=== PATIENT | female | born 1985 | race Caucasian/White ===

== ENCOUNTER 2019-07-18 06:27 | Outpatient (CLI) | payer OTHER, SELFPAY ==
[2019-07-18 16:20] LABS: SARS-CoV-2 RNA PCR Negative
== END 2019-07-18 06:28 | disposition home or self-care (01) ==
LOC: ANHCOVIDDT 06:28
PROVIDERS: Visit Provider Surgery
DX: Z01.818 Encounter for other preprocedural examination (principal); Z11.59 Encounter for screening for other viral diseases
CPT/HCPCS: 87635; C9803; U0003

== ENCOUNTER 2019-07-21 00:10 | Day surgery (SDC) | payer OTHER, SELFPAY ==
[2019-05-23 09:31] VITALS: BMI 23.3
[2019-07-16 09:08] VITALS: BMI 23.3
[2019-07-21] VITALS (8 sets, daily range): BP systolic 92–134; BP diastolic 49–83; PULSE 77–109; RESP 13–22; TEMP 36.3–36.4; O2SAT 98–100
--- NOTE | 2019-07-21 10:32 | WPDANESEPPF ---
Anes - Initial Pre Proc Eval Procedure: Operation Date: 07/21/19 12:00 Proposed Procedures p Umbilical Hernia Repair, Possible Mesh - Jayme Wisdom DO Date/Time: 07/21/19 10:32 Surgeon: Jayme Wisdom DO Pre Op Diagnosis: Umbilical Hernia Patient Data Age: 34 Gender: F Height: 5 ft 6 in Weight: 65.77 kg Allergies Allergy/AdvReac Type Severity Reaction Status Date / Time No Known Allergies Allergy Verified 07/16/19 09:07 Home Medications Medication Instructions Recorded Confirmed Type multivitamin 1 tablet PO DAILY 04/28/19 07/16/19 History Patient hx anesthesia problems: none Family hx anesthesia problems: none PMFSH Past Medical History Medical History Kidney stone Spontaneous Family History Family History Mother Family history of malignant neoplasm of uterus, Onset Age: 61 Cerebrovascular accident Father Family history of type 1 diabetes mellitus Heart disease CABG Rodriguez's palsy Social History Social History Smoking status: Never smoker Alcohol intake: never Substance use: never 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 Questions were solicited and answers provided to the satisfaction of the patient/family/POA.
[2019-07-21] MEDS: LACTATED RINGERS 1,000 ML 30 ML IV CONT (10:43)
[2019-07-21] MEDS: IBUPROFEN IV 800 MG/200 ML 800 MG/200 ML BAG 400 MG IVPB (11:25)
[2019-07-21] MEDS: ceFAZolin 2 GM/D5W 50 ML 2 GM/50 ML BAG IVPB (11:52)
--- NOTE | 2019-07-21 11:53 | PM.IMHP ---
H&P: HPI History of Present Illness Chief complaint: Umbilical Hernia Narrative: Madhavi Herndon is a 34 year old female who presented for umbilical hernia repair. She noticed this for several months. She was seen in the office and wants to proceed with surgery. Review of Systems Review of Systems: All systems reviewed & are unremarkable except as noted in HPI and below Eyes: Eyes: Denies change in vision ENT: Denies hearing loss, Denies neck pain and Denies sore throat Cardiovascular: Cardiovascular: Denies chest pain and Denies dyspnea Respiratory: Respiratory: Denies cough, Denies dyspnea and Denies wheezing Genitourinary: Genitourinary: Denies hematuria and Denies dysuria Musculoskeletal: Musculoskeletal: Denies arthralgias, Denies joint swelling and Denies neck pain Allergic/Immunologic: Allergic/Immunologic: Denies wheezing PMFSH Past Medical History Medical History Kidney stone Spontaneous Family History Family History Mother Family history of malignant neoplasm of uterus, Onset Age: 61 Cerebrovascular accident Father Family history of type 1 diabetes mellitus Heart disease CABG Rodriguez's palsy Social History Social History Smoking status: Never smoker Alcohol intake: never Substance use: never 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 Gender identity (if verbalized by the patient): Female Meds Home Medications and Allergies Home Medications Medication Instructions Recorded Confirmed Type multivitamin 1 tablet PO DAILY 04/28/19 07/21/19 History Allergies Allergy/AdvReac Type Severity Reaction Status Date / Time No Known Allergies Allergy Verified 07/21/19 10:34 Vital Signs Vital Signs - 24 hr 07/21/19 10:07 Temperature 36.4 C Pulse Rate 90 Respiratory Rate 20 Blood Pressure 130/83 Pulse Oximetry 100 Exam Const: General: alert; No acute distress Orientation/consciousness: patient oriented x3 Limitations: no limitations HENMT: Head: normocephalic and atraumatic Ears: hearing grossly normal bilaterally General nose exam: Normal external nose present and Normal nares present Mouth: Yes Normal oral and palatal mucosa present and Yes moist mucous membranes Eyes: General: appearance normal, both eyes and all related structures Conjunctivae: conjunctivae normal Sclera: sclerae normal Pupils: Equal, round and reactive pupils present EOM: EOMs intact bilaterally Neck: Neck: normal visual inspection, full ROM, no lymphadenopathy, supple and no JVD Lymphatic: no lymphadenopathy noted Chest: Chest palpation & inspection: normal inspection of the chest Resp: Effort & Inspection: normal respiratory effort and able to speak in complete sentences Auscultation: clear to auscultation bilaterally Percussion: percussion normal Cardio: Jugular venous distension: no JVD Rate: regular rate Rhythm: regular rhythm Heart sounds: S1 normal heart sound present and S2 normal heart sound present Peripheral pulses: Peripheral pulses 2+ throughout GI: Inspection: normal to inspection GI Palp: No abdominal tenderness, Yes Soft to palpation, No Guarding due to palpation present (GI), No Hernia present and No Rebound tenderness present Percussion: Yes normal to percussion Auscultation: normal bowel sounds Other: 1cm umbilical hernia : General: Yes no CVA tenderness Back/Spine/Pelvis: Back: no CVA tenderness Skin: General skin exam: normal color and dry skin Neuro: General: patient oriented x3, gait normal, moves all extremities, no focal motor deficits and CN's II-XI intact bilaterally Cranial nerves: Yes Equal, round and reactive pupils present Speech: normal speech Extrem: General: normal to inspection and capillary refill normal Assessment and Plan Assessm
[2019-07-21] MEDS: BUPIVACAINE/EPINEPHRINE 0.5% 30 ML VIAL INFILTRATE (12:13)
--- NOTE | 2019-07-21 13:00 | PM.PROC ---
Procedure Note - Detailed Date of procedure: 07/21/19 Pre-op diagnosis: Umbilical Hernia Post-op diagnosis: same Procedure performed: Umbilical hernia repair Description of procedure: Procedure as well as risks, benefits, and alternatives were discussed with the patient. Written consent was obtained and placed in chart prior to procedure. Patient was brought back to surgical suite. She was placed supine on operating table. She was then intubated by Anesthesia Department. Her abdomen was prepped and draped in sterile fashion using chlorhexidine prep. 0.5% bupivacaine with epinephrine was infiltrated locally around the operative area. A 2 cm curvilinear incision was made just inferior to the umbilicus using a 15 blade scalpel. Electrocautery was used for hemostasis and for dissection down through the subcutaneous fat. Hernia sac was encountered and this was carefully freed up from surrounding subcutaneous fat using electrocautery. The hernia sac was freed up all the way down to the level of the fascia, and then it was transected using electrocautery. The hernia sac was excised and sent to the lab for pathology. The umbilical stalk was then lifted off of the fascia with electrocautery. The hernia defect was then measured. This was measuring approximately 5 mm. The decision was made to repair this primarily with 0 Ethibond suture. The fascia of the hernia defect was then reapproximated over the mesh using 0 Ethibond [id number] sutures. A total of 3 sutures were placed transversely to approximate the fascia. The repair was inspected and appeared secure. 0.5% bupivacaine with epinephrine was infiltrated around the fascia and subcutaneous space. The umbilical stalk was then reapproximated to the fascia using a 3 0 Vicryl simple interrupted suture. The deep dermis was reapproximated using 3 0 Vicryl simple interrupted sutures, and then the skin was approximated using 4 Monocryl running subcuticular suture. Exofin glue was then applied on top. The patient was then awakened from anesthesia, extubated, and transferred to recovery. Anesthesia: local (0.5% bupivacaine with epinephrine) Surgeon: Jayme Wisdom DO Estimated blood loss (mL): 5 Pathology: yes (Hernia sac) Complications: No immediate complications Condition: stable Disposition: same day Findings: This is a 34-year-old woman who presented with a bulge at her umbilicus. She had noticed this become larger over time. She is found to have a reducible umbilical hernia on exam. Discussions were made with the patient about her treatment options, and decision was made to proceed with umbilical hernia repair with possible mesh. Umbilical hernia repair was performed. The patient was found to have a 5 mm umbilical hernia defect that contained preperitoneal fat. The preperitoneal fat and hernia sac were excised and sent to the lab for pathology. The fascial edges came together without any tension, therefore decision was made to repair this primarily with 0 Ethibond [id number] suture. A total of 3 sutures were placed transversely to approximate the fascia.
== END 2019-07-21 14:31 | disposition home or self-care (01) ==
PROVIDERS: Referring Provider Obstetrics & Gynecology; Visit Provider Surgery
PROC: (CPT 49585; principal; 2019-07-21 12:00)
DX: K42.9 Umbilical hernia without obstruction or gangrene (principal)
CPT/HCPCS: 49585; 88300; J0690; J1100; J1741; J2250; J2405; J2704; J7120

== ENCOUNTER 2024-09-02 12:33 | Outpatient (CLI) | payer BC, SELFPAY ==
--- NOTE | ~2024-09-02 | MM_ITS ---
EXAMINATION: MM screening mia BI w denise HISTORY: Screening mammogram TECHNIQUE: Craniocaudal and mediolateral oblique 3-D tomosynthesis images were obtained and synthetic 2-D images were generated. CAD analysis was submitted and interpreted. COMPARISON: No prior mammogram is available for comparison at this institution. BREAST PARENCHYMAL COMPOSITION:Dense: The breasts are heterogeneously dense, which may obscure small masses. FINDINGS: No suspicious mass, calcification, or architectural distortion are identified in either fede ast to suggest malignancy. There has been no suspicious interval change. IMPRESSION: No mammographic evidence of malignancy. Recommend routine screening mammography in one year. BI-RADS Category 1: Negative Reviewed, dictated and finalized at location .
== END 2024-09-02 12:34 | disposition home or self-care (01) ==
LOC: MICIMG 12:34
PROVIDERS: PCP Obstetrics & Gynecology; Visit Provider Obstetrics & Gynecology
DX: Z12.31 Encounter for screening mammogram for malignant neoplasm of breast (principal)
CPT/HCPCS: 77063; 77067